=== PATIENT | female | born 1995 | race Caucasian/White ===

== ENCOUNTER 2017-07-23 17:52 | Emergency (ER) | payer OTHER ==
[~2017-07-23] VITALS: Ht 175.3 cm; Wt 86.2 kg
[2017-07-23] MEDS ORDERED: CELEXA20 MG PO (18:11)
[2017-07-23 18:23] LABS: URINE BLOOD 3+ (Negative); URINE CLARITY CLOUDY; URINE COLOR RED; URINE GLUCOSE-RANDOM NEGATIVE (Negative); URINE KETONES NEGATIVE (Negative); URINE NITRITE-REFLEX NEGATIVE (Negative); URINE PROTEIN 2+ (Negative); URINE SPECIFIC GRAVITY 1.025 (1.005-1.030)
[2017-07-23 18:29] LABS: ICTOTEST (BILI CONFIRMATORY) Negative (Negative); URINE BILIRUBIN 1+ (Negative); URINE LEUKOCYTES-REFLEX 2+ (Negative)
[2017-07-23 18:37] LABS: URINE RBC >20 Many /HPF (0-2)
[2017-07-23 18:38] LABS: URINE WBC-REFLEX 6-15 Few /HPF (0-5)
[2017-07-23 18:39] LABS: CASTS None Seen /LPF (None Seen); CRYSTALS None Seen /LPF (None Seen); MUCUS None Seen strn/LPF (None Seen); SQUAMOUS 0-3 Few /LPF (0-3)
[2017-07-23 18:40] LABS: BACTERIA-REFLEX 1-9 Few /HPF (None Seen)
[2017-07-23] MEDS ORDERED: FLAGYL500 MG PO (18:48)
[2017-07-23 18:57] VITALS: BP 130/67
== END 2017-07-23 18:58 | disposition home or self-care (01) ==
LOC: M.ERS 17:52
PROVIDERS: Nurse Practitioner Family
DX: N72 Inflammatory disease of cervix uteri (principal); N76.0 Acute vaginitis; B96.89 Other specified bacterial agents as the cause of diseases classified elsewhere; F32.9 Major depressive disorder, single episode, unspecified